=== PATIENT | female | born 1935 | race Caucasian/White ===

== ENCOUNTER 2019-05-23 09:43 | Observation (INO) ==
[2019-05-23] MEDS ORDERED: Ipratropium/Albuterol Neb 3 ML IH ONE (09:56)
[2019-05-23 10:20] LABS: Basophils % 0.4 %; Eosinophils # 0.1 K/mcL (0.0-0.6); Eosinophils % 0.6 %; Hematocrit 39.9 % (35.3-44.9); Hemoglobin 12.9 g/dL (11.5-15.4); Immature Granulocytes % 0.5 % (0-4); Lymphocytes # 3.4 K/mcL (0.6-4.6); Lymphocytes % 29.8 %; Mean Corpuscular HGB Conc 32.3 g/dL (31.6-35.5); Mean Corpuscular Hemoglobin 29.6 pg (28.0-33.3); Mean Corpuscular Volume 91.5 fL (83.0-100.0); Mean Platelet Volume 10.5 fL (9.4-12.4); Monocytes % 8.9 %; Neutrophils # 6.8 K/mcL (1.6-8.9); Platelet Count 208 K/mcL (140-400); Red Blood Count 4.36 M/mcL (3.82-4.97); Segmented Neutrophils % 59.8 %; White Blood Count 11.3 K/mcL (4.3-11.1)
[2019-05-23 10:23] LABS: Basophils # 0.1 K/mcL (0.0-0.2)
[2019-05-23 10:32] LABS: INR 1.2; Prothrombin Time 13.4 Seconds (9.4-12.1)
[2019-05-23 10:35] LABS: Activated Partial Thrombo Time 33.9 Seconds (26.0-36.0)
[2019-05-23 10:37] LABS: BUN/Creatinine Ratio 19 (6-26); Blood Urea Nitrogen 17 mg/dL (8-23); Calcium 9.6 mg/dL (8.6-10.3); Carbon Dioxide 30 mEq/L (23-29); Chloride 95 mEq/L (98-107); Glucose 127 mg/dL (70-105); Osmolality,Calculated 281 (280-300); Potassium 3.5 mEq/L (3.5-5.1); Sodium 134 mEq/L (136-145); eGFR For African Americans > 60 (> 60); eGFR For Non-African Americans > 60 (> 60)
[2019-05-23 10:45] LABS: Troponin I < 0.03 ng/mL (< 0.04)
--- NOTE | 2019-05-23 11:31 | Emergency Department Note ---
Disposition Clinical Impression: Acute exacerbation of chronic obstructive airways disease Dyspnea Qualifiers: Dyspnea type: unspecified Qualified Code(s): R06.00 - Dyspnea, unspecified Disposition: Admitted As Inpatient Condition: Fair Referrals: Tiana Chavarria CNP [Primary Care Provider] - Forms: ED Satisfaction Letter Time of Disposition: 11:34 SOB HPI - General Chief Complaint: ED Shortness of Breath/Dyspnea Stated Complaint: SHORT OF BREATH Time Seen by Provider: 05/23/19 09:54 Source: patient Mode of arrival: private vehicle Limitations: no limitations Nursing Notes Reviewed: Yes Vital Signs Reviewed: Yes - History of Present Illness Pt Subjective Complaint: shortness of breath Onset (ago): day(s) Severity: severe Consistency/Duration: constant Improves with: nothing Worsens with: exertion Known history of: COPD Associated symptoms: Reports: cough, wheezing, sputum production Treatment prior to arrival: bronchodilator Cough present: Yes Cough Description: Involuntary Cough Frequency: Intermittent Sputum production: Yes - Related Data Home oxygen amount: 2 liters Home Medications Medication Instructions Recorded Confirmed Albuterol Sulfate [Ventolin Hfa] 90 mcg IH Q6H PRN 12/24/15 05/23/19 Amlodipine Besylate 5 mg PO DAILY 12/24/15 05/23/19 Budesonide/Formoterol 160/4.5 2 puff IH BIDR 12/24/15 05/23/19 [Symbicort 160/4.5] predniSONE [Prednisone] 5 mg PO DAILY 08/29/16 05/23/19 Omeprazole [PriLOSEC] 20 mg PO DAILY 11/14/16 05/23/19 Alendronate Sodium [Fosamax] 10 mg PO QWEEK 02/27/18 05/23/19 Allopurinol [Zyloprim] 100 mg PO DAILY 02/27/18 05/23/19 Dextran 70/Hypromellose 1 ml OP QID 02/27/18 05/23/19 [Artificial Tears Eye Drops] Montelukast [Singulair] 10 mg PO HS 02/27/18 05/23/19 Albuterol Neb [Proventil Neb] 2.5 mg IH Q6H PRN 07/31/18 05/23/19 Guaifenesin [Mucinex] 600 mg PO Q12H PRN 07/31/18 05/23/19 Tiotropium [Spiriva] 18 mcg IH 0700 05/23/19 05/23/19 Allergies Allergy/AdvReac Type Severity Reaction Status Date / Time aspirin Allergy Hives Verified 05/20/19 00:00 Cyclobenzaprine AdvReac Dizziness Verified 05/20/19 00:00 All systems ED: reviewed and negative except as stated. Constitutional: Denies: fever, chills ENT ED: Denies: ear pain, throat pain, congestion Cardiovascular: Denies: chest pain, palpitations Respiratory: Reports: cough, dyspnea, wheezes Gastrointestinal: Denies: abdominal pain, nausea, vomiting, diarrhea Integumentary: Denies: rash Neurological: Denies: headache Past Medical History - Past Medical History Attestation: Yes The following information was validated with the patient. Source: patient, old records reviewed, nursing notes reviewed Medical history: Reports: COPD, GERD, hypertension, osteoporosis Surgical history: Reports: non-contributory Psychiatric history: Reports: no psych history FUR REPAIRER history: Reports: no FUR REPAIRER history - Social History Smoking Status: Never smoker Smokeless Tobacco Status: No Alcohol use: Reports: none Drug use: Reports: none Physical Exam - General Limitations: no limitations General appearance: alert, other (Tachypneic with audible wheezing) - Head Head exam: other (Ecchymosis to the left side of head and face from recent injury) - Eye Eye exam: Present: normal appearance, PERRL, EOMI. Absent: scleral icterus, conjunctival injection - ENT ENT exam: normal exam, normal oropharynx, mucous membranes moist, normal external ear exam - Neck Neck exam: Present: normal inspection, full ROM, trachea midline. Absent: meningismus - Chest Chest inspection: Present: normal inspection, symmetric chest wall rise. Absent: tenderness - Respiratory Respiratory exam: Present: wheezes, prolonged expiratory phase - Cardiovascular Cardiovascular exam: Present: regular rate, normal rhythm, normal heart sounds - Abdominal Exam Abdominal exam: Present: soft, Non-Tender, normal bowel sounds - Extremities Exam Extremities exam: Present: normal inspection. Absent: tenderness - Neurological Exam Neurological exam: Present: alert, oriented X3 - Psychiatric Psychiatric exam: Present: normal affect, normal mood - Skin Skin exam: Present: warm, dry. Absent: rash Course Course Narrative: Patient arrived with shortness of breath and cough and wheezing over the past couple of days. This is worsened by exertion at home. She was recently seen in this ER after a fall with head injury. All imaging studies there were negativ e. Her complaints today are unrelated to that fall. On examination her lungs are coarse with wheezing but she has breath sounds on both lungs. We will get breathing treatments going. She already got steroids from the squad. Disposition will be based on diagnostic results and reevaluation. - Reevaluation(s) Reevaluation #1: Chest x-ray is clear. Labs look fine. Patient has improved with 3 treatments but still audible wheezing at rest so she is to be admitted for further management. I will talk to the hospitalist and arrange admission. Time: 11:33 - Consultations Consultation #1: Dr. Snyder, hospitalist - I discussed case with the hospice. He gave orders to admit the patient. Time: 11:39 Vital Signs Temperature 98.5 F 05/23/19 09:55 Pulse Rate 96 05/23/19 09:55 Respiratory Rate 22 05/23/19 09:55 Blood Pressure 164/84 05/23/19 09:55 O2 Sat by Pulse Oximetry 95 05/23/19 09:55 Temperature 98.5 F 05/23/19 09:55 Pulse Rate 96 05/23/19 09:55 Respiratory Rate 22 05/23/19 09:55 Blood Pressure 164/84 05/23/19 09:55 O2 Sat by Pulse Oximetry 93 05/23/19 09:55 Oxygen Delivery Oxygen Delivery Nasal Cannula Shortness of Breath/Dyspnea - Medical Records Medical records reviewed: Yes I reviewed the patient's medical records. - Lab Data Lab results reviewed: Yes I reviewed the patient's lab results. Result diagrams: 05/23/19 10:10 05/23/19 10:10 Lab Results 05/23/19 05/23/19 05/23/19 Range/Units 10:10 10:10 10:10 WBC 11.3 H (4.3-11.1) K/mcL RBC 4.36 (3.82-4.97) M/mcL Hgb 12.9 (11.5-15.4) g/dL Hct 39.9 (35.3-44.9) % MCV 91.5 (83.0-100.0) fL MCH 29.6 (28.0-33.3) pg MCHC 32.3 (31.6-35.5) g/dL RDW 15.0 H (11.5-14.5) % Plt Count 208 (140-400) K/mcL MPV 10.5 (9.4-12.4) fL Immature Gran % 0.5 (0-4) % Seg Neutrophils % 59.8 % Lymphocytes % 29.8 % Monocytes % 8.9 % Eosinophils % 0.6 % Basophils % 0.4 % Neutrophils # 6.8 (1.6-8.9) K/mcL Lymphocytes # 3.4 (0.6-4.6) K/mcL Monocytes # 1.0 (0.0-1.3) K/mcL Eosinophils # 0.1 (0.0-0.6) K/mcL Basophils # 0.1 (0.0-0.2) K/mcL PT (9.4-12.1) Seconds INR APTT (26.0-36.0) Seconds Sodium 134 L (136-145) mEq/L Potassium 3.5 (3.5-5.1) mEq/L Chloride 95 L (98-107) mEq/L Carbon Dioxide 30 H (23-29) mEq/L BUN 17 (8-23) mg/dL Creatinine 0.88 (0.60-1.20) mg/dL Est GFR ( Amer) > 60 (> 60) Est GFR (Non-Af Amer) > 60 (> 60) BUN/Creatinine Ratio 19 (6-26) Glucose 127 H (70-105) mg/dL Calculated Osmolality 281 (280-300) Calcium 9.6 (8.6-10.3) mg/dL Troponin I < 0.03 (< 0.04) ng/mL B-Natriuretic Peptide 97 (Less than 100) pg/mL 05/23/19 Range/Units 10:10 WBC (4.3-11.1) K/mcL RBC (3.82-4.97) M/mcL Hgb (11.5-15.4) g/dL Hct (35.3-44.9) % MCV (83.0-100.0) fL MCH (28.0-33.3) pg MCHC (31.6-35.5) g/dL RDW (11.5-14.5) % Plt Count (140-400) K/mcL MPV (9.4-12.4) fL Immature Gran % (0-4) % Seg Neutrophils % % Lymphocytes % % Monocytes % % Eosinophils % % Basophils % % Neutrophils # (1.6-8.9) K/mcL Lymphocytes # (0.6-4.6) K/mcL Monocytes # (0.0-1.3) K/mcL Eosinophils # (0.0-0.6) K/mcL Basophils # (0.0-0.2) K/mcL PT 13.4 H (9.4-12.1) Seconds INR 1.2 APTT 33.9 (26.0-36.0) Seconds Sodium (136-145) mEq/L Potassium (3.5-5.1) mEq/L Chloride (98-107) mEq/L Carbon Dioxide (23-29) mEq/L BUN (8-23) mg/dL Creatinine (0.60-1.20) mg/dL Est GFR ( Amer) (> 60) Est GFR (Non-Af Amer) (> 60) BUN/Creatinine Ratio (6-26) Glucose (70-105) mg/dL Calculated Osmolality (280-300) Calcium (8.6-10.3) mg/dL Troponin I (< 0.04) ng/mL B-Natriuretic Peptide (Less than 100) pg/mL - Radiology Data Radiology results reviewed: Yes I reviewed the patient's radiology results. - EKG Data EKG attestation: Yes I reviewed and interpreted this EKG. EKG results narrative: Twelve-lead EKG performed at 10:56 AM. Ordered, but interpreted by ED physician shows sinus rhythm at a rate of 95. Normal axis. Left bundle branch block. No acute ischemic changes. Intervals within normal limits.
[2019-05-23] MEDS ORDERED: MethylPREDNISolone 40 MG/ML VIAL IVP ONE (12:27)
[2019-05-23] MEDS ORDERED: Naloxone 0.4 MG/ML INJ IVP PRN (12:27)
[2019-05-23] MEDS ORDERED: Azithromycin 500 MG in D5% in Water 250 ML IVPB ONE (12:27)
[2019-05-23] MEDS ORDERED: NON-FORMULARY MEDICATION 1 EACH EACH (Alendronate Sodium [Fosamax] 10 MG) PO SCH (12:27)
[2019-05-23] MEDS: Ipratropium/Albuterol Neb 3 ML IH SCH ×3 (13:05→21:26)
[2019-05-23] MEDS: cefTRIAXone 1,000 MG in Water for inj. (sterile) 10 ML IVPB SCH (14:29)
[2019-05-23] MEDS: 0.9 % Sodium Chloride 1,000 ML IVC SCH (14:31)
[2019-05-23] MEDS: Budesonide/Formoterol 160/4.5 1 PUFF INH IH SCH (23:00)
[2019-05-24] MEDS: Ipratropium/Albuterol Neb 3 ML IH SCH ×6 (00:35→20:59)
[2019-05-24] MEDS: 0.9 % Sodium Chloride 1,000 ML IVC SCH (04:38)
[2019-05-24] MEDS: Budesonide/Formoterol 160/4.5 1 PUFF INH IH SCH ×2 (08:44→21:02)
[2019-05-24] MEDS: Tiotropium 18 MCG inhalation IH SCH (08:45)
[2019-05-24] MEDS: amLODIPine 5 MG TABLET PO SCH (09:39)
[2019-05-24] MEDS: cefTRIAXone 1,000 MG in Water for inj. (sterile) 10 ML IVPB SCH (09:39)
--- NOTE | 2019-05-24 12:43 | Internal Med History&Physical ---
Date of Encounter: 05/24/19 Time of Encounter: 12:20 Assessment and Plan (1) Acute bronchitis Current visit: Yes Status: Acute Bibasilar pneumonia not completely excluded. She was started on IV Rocephin and Zithromax in emergency room. Pro-calcitonin level will be ordered. Qualifiers: Bronchitis organism: unspecified organism Qualified Code(s): J20.9 - Acute bronchitis, unspecified (2) Gout Current visit: No Status: Chronic Check uric acid level in a.m. Qualifiers: Gout site: unspecified site Gout etiology: unspecified cause Chronicity: chronic Presence of tophus: without tophus Qualified Code(s): M1A.9XX0 - Chronic gout, unspecified, without tophus (tophi) (3) Nasal bone fracture Current visit: No Status: Acute Nonsurgical treatment. Qualifiers: Encounter type: subsequent encounter Fracture type: closed Fracture healing: with routine healing Qualified Code(s): S02.2XXD - Fracture of nasal bones, subsequent encounter for fracture with routine healing Internal Medicine - H&P: HPI Chief complaint: Dyspnea and cough Admitted From: Emergency Dept Plans for Post Hospital Care: Home History of present illness: Ms. Pagan is a 84 year old female who came to emergency room stating she had fever with worsening dyspnea the morning of admission. Symptoms originally started approximately 3-4 days earlier. She had seen her PCP and received prescriptions for antibiotic and other Rx. She reports cough productive of green/yellow and occasional blood-tinged sputum. She was evaluated in emergency room and was felt to have exacerbation of COPD with possible bibasilar pneumon ia. She was admitted to [facility] floor for ongoing care needs. Her respiratory history is significant for having smoked from age [age]. She had pulmonary function tests 08/08/2015 which showed moderate obstructive ventilatory impairment with significant bronchodilator response. There was increased RV suggesting air trapping. The actual data was not included in the report. She was hospitalized to [facility] October 2016 with a diagnosis of pneumonia. She has oxygen at home which she wears regularly but not continuously. Past Med Surg Social Fam HX - Past Medical History Medical history: COPD, GERD, hypertension, osteoporosis Additional medical history: gout, Psychiatric history: no psych history - Past Surgical History Surgical History: non-contributory Additional surgical history: cataract surgery right and left eye - Social History Smoking Status: Never smoker Smokeless Tobacco Status: No Alcohol use: none Drug use: none Internal Medicine - H&P: Meds Albuterol Sulfate [Ventolin Hfa] 90 mcg IH Q6H PRN 12/24/15 [History] Amlodipine Besylate 5 mg PO DAILY 12/24/15 [History] Budesonide/Formoterol 160/4.5 [Symbicort 160/4.5] 2 puff IH BIDR 12/24/15 [History] predniSONE [Prednisone] 5 mg PO DAILY 08/29/16 [History] Omeprazole [PriLOSEC] 20 mg PO DAILY 11/14/16 [History] Alendronate Sodium [Fosamax] 10 mg PO QWEEK 02/27/18 [History] Allopurinol [Zyloprim] 100 mg PO DAILY 02/27/18 [History] Dextran 70/Hypromellose [Artificial Tears Eye Drops] 1 ml OP QID 02/27/18 [History] Montelukast [Singulair] 10 mg PO HS 02/27/18 [History] Albuterol Neb [Proventil Neb] 2.5 mg IH Q6H PRN 07/31/18 [History] Guaifenesin [Mucinex] 600 mg PO Q12H PRN 07/31/18 [History] Tiotropium [Spiriva] 18 mcg IH 0700 05/23/19 [History] Allergy/AdvReac Type Severity Reaction Status Date / Time aspirin Allergy Hives Verified 05/20/19 00:00 Cyclobenzaprine AdvReac Dizziness Verified 05/20/19 00:00 All Systems PM: A 10-system review of systems was performed and is negative for pertinent findings except as documented above in the HPI. Review of systems: Review of systems from her October 2016 [facility] hospitalization were reviewed and revised as below. Gen.: She states her weight has been stable past few months Cardiovascular: She has history of hypertension but denies HI heart failure angina DVT or pulmonary embolus Respiratory: As per history of present illness GI: She denies disorders of her liver gallbladder or exocrine pancreas : She denies hematuria dysuria or kidney stones. She denies chronic kidney disease. Neurologic: She denies large distribution strokes or seizures. Endocrine: She denies diabetes thyroid disease or hyperlipidemia Hematology/oncology: She denies blood disorders cancers or anemia Psychiatric: She denies anxiety depression or other mental health issues Musk skeletal: She has DJD and gout. She had a fall the evening of May 19 and came to emergency room. Nasal fracture was diagnosed and she was referred to ENT and was seen May 21. Conservative nonsurgical intervention was recommended. She denies other bone joint or muscle disorders. - Constitutional Vitals: Temp Pulse Resp BP Pulse Ox 98.3 F 79 16 162/73 95 05/24/19 07:24 05/24/19 07:24 05/24/19 08:44 05/24/19 07:24 05/24/19 08:44 Exam: Gen.: She is a well-developed overweight female sitting in a chair at bedside who appears in no acute distress HEENT: She has ecchymosis covering a large portion of her left face. Eyes: EOMI. There is no scleral icterus. Mouth: Mucosa is moist. Neck: Supple and nontender. There is no thyromegaly or adenopathy noted. Heart: Regular without murmurs gallops or ectopics Lungs: No wheezes or crackles are heard. Abdomen: Soft and nontender. No masses or guarding are noted. Exam is limited because she is in the seated position. Extremities: No cyanosis edema or clubbing noted. Dorsalis pedis and posterior tibial pulses are trace to 1+ palpable bilaterally. Neurologic: Mental status: She is talkative and a good historian. Cranial ne rves: Smile is symmetric. Forehead wrinkles bilaterally. Tongue protrudes midline. EOMI. Motor: There is no pronator drift. Cerebellar: Finger to nose is intact bilaterally. Skin: Warm and dry Internal Med - H&P Results - Labs CBC & Chem 7: 05/23/19 10:10 05/23/19 10:10 - Impressions ITS Impressions Chest X-Ray 05/23/19 09:55 IMPRESSION: Mild bibasilar atelectasis versus pneumonia. D/ / Parveen Villanueva MD / Parveen Villanueva MD Interpreting Provider: Parveen Villanueva MD
--- NOTE | 2019-05-24 16:05 | Electrocardiograph Report ---
[address] [address] Test Date: 2019-05-23 Pat Name: Lesley Pagan Department: [id number] Room: [facility] Gender: F Scientist Immunology: [id number] : 1935 Requested By: Zaire Bedoya Order Number: [id number] Reading MD: Eligio Pitt Measurements Intervals [place] Rate: 95 P: 56 CT: 160 QRS: 17 QRSD: 161 T: 164 QT: 381 QTc: 434 Interpretive Statements SINUS RHYTHM WITH OCCASIONAL SUPRAVENTRICULAR PREMATURE COMPLEXES LEFT BUNDLE BRANCH BLOCK Electronically Signed On 05-24-2019 16:03:36 EDT by Eligio Pitt
[2019-05-25] MEDS: Ipratropium/Albuterol Neb 3 ML IH SCH ×4 (00:37→12:43)
[2019-05-25 07:41] LABS: Basophils % 0.1 %; Eosinophils % 0.2 %; Hematocrit 36.6 % (35.3-44.9); Hemoglobin 11.9 g/dL (11.5-15.4); Immature Granulocytes % 0.4 % (0-4); Lymphocytes # 1.3 K/mcL (0.6-4.6); Lymphocytes % 10.5 %; Mean Corpuscular HGB Conc 32.5 g/dL (31.6-35.5); Mean Corpuscular Hemoglobin 30.1 pg (28.0-33.3); Mean Corpuscular Volume 92.7 fL (83.0-100.0); Mean Platelet Volume 10.8 fL (9.4-12.4); Monocytes # 0.8 K/mcL (0.0-1.3); Monocytes % 6.3 %; Neutrophils # 10.1 K/mcL (1.6-8.9); Platelet Count 223 K/mcL (140-400); Red Blood Count 3.95 M/mcL (3.82-4.97); Red Cell Distribution Width 15.3 % (11.5-14.5); Segmented Neutrophils % 82.5 %; White Blood Count 12.2 K/mcL (4.3-11.1)
[2019-05-25 07:52] LABS: BUN/Creatinine Ratio 29 (6-26); Blood Urea Nitrogen 26 mg/dL (8-23); Calcium 9.1 mg/dL (8.6-10.3); Carbon Dioxide 27 mEq/L (23-29); Chloride 104 mEq/L (98-107); Glucose 93 mg/dL (70-105); Osmolality,Calculated 294 (280-300); Potassium 3.5 mEq/L (3.5-5.1); Sodium 140 mEq/L (136-145); eGFR For African Americans > 60 (> 60); eGFR For Non-African Americans 59 (> 60)
[2019-05-25] MEDS: Budesonide/Formoterol 160/4.5 1 PUFF INH IH SCH (07:54)
[2019-05-25] MEDS: Tiotropium 18 MCG inhalation IH SCH (07:54)
[2019-05-25] MEDS: cefTRIAXone 1,000 MG in Water for inj. (sterile) 10 ML IVPB SCH (09:29)
[2019-05-25] MEDS: amLODIPine 5 MG TABLET PO SCH (09:29)
[2019-05-25 10:44] VITALS: BP 128/83
--- NOTE | 2019-05-25 11:27 | Discharge Summary ---
Orders not resulted at time of discharge: Pending orders 05/23/19 10:10 Culture,Blood [] Stat Date of Encounter: 05/25/19 Time of Encounter: 11:16 - Discharge Diagnosis (1) Acute bronchitis Priority: Primary Status: Acute Qualifiers: Bronchitis organism: unspecified organism Qualified Code(s): J20.9 - Acute bronchitis, unspecified (2) Gout Priority: Secondary Status: Chronic Qualifiers: Gout site: unspecified site Gout etiology: unspecified cause Chronicity: chronic Presence of tophus: without tophus Qualified Code(s): M1A.9XX0 - Chronic gout, unspecified, without tophus (tophi) (3) Nasal bone fracture Priority: Secondary Status: Acute Qualifiers: Encounter type: subsequent encounter Fracture type: closed Fracture healing: with routine healing Qualified Code(s): S02.2XXD - Fracture of nasal bones, subsequent encounter for fracture with routine healing Hospital course: Ms. Pagan is a 84 year old female who came to emergency room stating she had fever with worsening dyspnea the morning of admission. Symptoms originally started approximately 3-4 days earlier. She had seen her PCP and received prescriptions for antibiotic and other Rx. She reports cough productive of green/yellow and occasional blood-tinged sputum. She was evaluated in emergency room and was felt to have exacerbation of COPD with possible bibasilar pneum onia. She was admitted to [facility] floor for ongoing care needs. Initial orders were written by the emergency room physician. I saw her on May 24 and performed a history and physical. She was started on IV Rocephin and Zithromax empirically in emergency room for possible pneumonia. Procalcitonin level returned WNL at 0.02. She remained afebrile and felt improved when I saw her May 25. She wished to be discharged which I felt was reasonable. She will not continue with antibiotics at home. She will continue use of home oxygen as prior to admission. Follow-up lab work on May 25 showed WBC slightly elevated at 12.2 with 82.5% segs. Uric acid level returned normal at 5.4. BN peptide slightly elevated at 199. Her PCP can follow-up on these abnormalities. She will follow with her PCP Tiana Chavarria CNP within 1 week. - Time Spent with Patient Total time spent providing and/or coordinating discharge services: - Discharge Medications Prescriptions: Continued Amlodipine Besylate 5 mg PO DAILY Albuterol Sulfate [Ventolin Hfa] 90 mcg IH Q6H PRN PRN Reason: asthma Budesonide/Formoterol 160/4.5 [Symbicort 160/4.5] 2 puff IH BIDR predniSONE [Prednisone] 5 mg PO DAILY Omeprazole [PriLOSEC] 20 mg PO DAILY Alendronate Sodium [Fosamax] 10 mg PO QWEEK Allopurinol [Zyloprim] 100 mg PO DAILY Dextran 70/Hypromellose [Artificial Tears Eye Drops] 1 ml OP QID Montelukast [Singulair] 10 mg PO HS Albuterol Neb [Proventil Neb] 2.5 mg IH Q6H PRN PRN Reason: Wheezing Guaifenesin [Mucinex] 600 mg PO Q12H PRN PRN Reason: CONGESTION Tiotropium [Spiriva] 18 mcg IH 0700 Home Medications: Albuterol Sulfate [Ventolin Hfa] 90 mcg IH Q6H PRN 12/24/15 [History] Amlodipine Besylate 5 mg PO DAILY 12/24/15 [History] Budesonide/Formoterol 160/4.5 [Symbicort 160/4.5] 2 puff IH BIDR 12/24/15 [History] predniSONE [Prednisone] 5 mg PO DAILY 08/29/16 [History] Omeprazole [PriLOSEC] 20 mg PO DAILY 11/14/16 [History] Alendronate Sodium [Fosamax] 10 mg PO QWEEK 02/27/18 [History] Allopurinol [Zyloprim] 100 mg PO DAILY 02/27/18 [History] Dextran 70/Hypromellose [Artificial Tears Eye Drops] 1 ml OP QID 02/27/18 [History] Montelukast [Singulair] 10 mg PO HS 02/27/18 [History] Albuterol Neb [Proventil Neb] 2.5 mg IH Q6H PRN 07/31/18 [History] Guaifenesin [Mucinex] 600 mg PO Q12H PRN 07/31/18 [History] Tiotropium [Spiriva] 18 mcg IH 0700 05/23/19 [History] Allergies/Adverse Reactions: Allergy/AdvReac Type Severity Reaction Status Date / Time aspirin Allergy Hives Verified 05/20/19 00:00 Cyclobenzaprine AdvReac Dizziness Verified 05/20/19 00:00 Date of admission: 05/23/19 12:16 Primary care physician: Tiana Chavarria - Constitutional Vitals: Temp Pulse Resp BP Pulse Ox 98.3 F 90 18 128/83 96 05/25/19 10:41 05/25/19 10:41 05/25/19 10:41 05/25/19 10:41 05/25/19 10:41 - Patient Status Disposition: Home, Self-Care Condition: Fair - Discharge Instructions Follow Up With: Tiana Chavarria, [employer] [Primary Care Provider] - 1 week - Diet and Activity Activity: resume usual activities as tolerated Diet: advance to your usual diet
== END 2019-05-25 13:09 | disposition home or self-care (01) ==
LOC: INPPIK 09:43 → EMEROOPIK 09:43 → INPPIK 12:45
PROVIDERS: ADMIT Internal Medicine; ATTEND Internal Medicine

== ENCOUNTER 2022-05-05 09:47 | Inpatient (IN) ==
[2022-05-05 10:28] LABS: Bilirubin,Urine Small (Negative); Blood,Urine Small (Negative); Clarity,Urine Clear (Clear); Color,Urine Yellow (Yellow); Glucose,Urine (UA) Normal (Normal); Ketones,Urine 40 mg/dL (Negative); Leukocyte Esterase,Urine Negative (Negative); Nitrite,Urine Negative (Negative); Protein,Urine 30 mg/dL (Neg-Trace); Specific Gravity,Urine 1.025 (1.010-1.025); Urobilinogen,Urine Normal (Normal)
[2022-05-05 10:34] LABS: RBC,Urine 0-3 per hpf (0-3)
[2022-05-05 10:38] LABS: Basophils % 0.1 %; Eosinophils # 0.1 K/mcL (0.0-0.6); Eosinophils % 0.6 %; Hematocrit 37.2 % (35.3-44.9); Hemoglobin 10.6 g/dL (11.5-15.4); Immature Granulocytes % 0.6 % (0-4); Lymphocytes # 1.3 K/mcL (0.6-4.6); Lymphocytes % 12.7 %; Mean Corpuscular HGB Conc 28.5 g/dL (31.6-35.5); Mean Corpuscular Hemoglobin 24.2 pg (28.0-33.3); Mean Corpuscular Volume 84.9 fL (83.0-100.0); Mean Platelet Volume 10.2 fL (9.4-12.4); Monocytes # 0.7 K/mcL (0.0-1.3); Monocytes % 7.1 %; Platelet Count 224 K/mcL (140-400); Red Blood Count 4.38 M/mcL (3.82-4.97); Red Cell Distribution Width 17.1 % (11.5-14.5); Segmented Neutrophils % 78.9 %; White Blood Count 10.1 K/mcL (4.3-11.1)
[2022-05-05 10:41] LABS: ABG Base Excess 6 mEq/L (-2 to 3); ABG HCO3 36 mEq/L (21-27); ABG Oxygen Saturation 99 % (95-98); ABG PCO2 80 mmHg (35-45); ABG PH 7.27 pH Units (7.32-7.45); ABG PO2 151 mmHg (85-104); ABG TCO2 39 mEq/L (20-26)
[2022-05-05 10:43] LABS: Amphetamine Screen,Urine Negative ng/mL (Cutoff=1000); Barbiturate Screen,Urine Negative ng/mL (Cutoff=200); Benzodiazepines Screen,Urine Negative ng/mL (Cutoff=200); Cannabinoid Screen,Urine Negative ng/mL (Cutoff = 50); Cocaine Screen,Urine Negative ng/mL (Cutoff= 300); Opiate Screen,Urine Negative ng/mL (Cutoff=300); Phencyclidine Screen,Urine Negative ng/mL (Cutoff=25)
[2022-05-05] MEDS ORDERED: Ipratropium/Albuterol Neb 3 ML IH ONE (10:45)
[2022-05-05] MEDS ORDERED: methylPREDNISolone 125 MG/2 ML VIAL IVP ONE (10:45)
[2022-05-05 10:49] LABS: INR 1.1; Prothrombin Time 12.4 Seconds (9.4-12.1)
[2022-05-05 10:56] LABS: Alanine Aminotransferase 25 Units/L (7-52); Albumin 3.7 g/dL (3.5-5.7); Albumin/Globulin Ratio 1.5 (1.1-2.2); Alkaline Phosphatase 51 Units/L (34-104); Aspartate Amino Transferase 24 Units/L (13-39); BUN/Creatinine Ratio 22 (6-26); Bilirubin,Direct 0.2 mg/dL (0.0-0.2); Bilirubin,Indirect 0.6 mg/dL (0.0-1.0); Bilirubin,Total 0.8 mg/dL (0.3-1.0); Blood Urea Nitrogen 15 mg/dL (8-23); Calcium 8.7 mg/dL (8.6-10.3); Carbon Dioxide 38 mEq/L (23-29); Chloride 93 mEq/L (98-107); Ethanol < 10 mg/dL (Less than 10); Globulin 2.4 g/dL (2.4-3.5); Glucose 87 mg/dL (70-105); Lipase 16 Units/L (11-82); Osmolality,Calculated 282 (280-300); Potassium 3.8 mEq/L (3.5-5.1); Sodium 136 mEq/L (136-145); Total Protein 6.1 g/dL (6.4-8.9); eGFR For African Americans > 60 (> 60); eGFR For Non-African Americans > 60 (> 60)
[2022-05-05 12:14] LABS: ABG Base Excess 6 mEq/L (-2 to 3); ABG HCO3 34 mEq/L (21-27); ABG Oxygen Saturation 99 % (95-98); ABG PCO2 63 mmHg (35-45); ABG PH 7.34 pH Units (7.32-7.45); ABG PO2 137 mmHg (85-104); ABG TCO2 36 mEq/L (20-26)
[2022-05-05] MEDS ORDERED: Naloxone 0.4 MG/ML INJ IVP PRN (13:05)
[2022-05-05] MEDS ORDERED: Acetaminophen 325 MG TABLET PO PRN (13:05)
[2022-05-05] MEDS ORDERED: Ondansetron 4 MG/2 ML VIAL IVP PRN (13:05)
[2022-05-05] MEDS ORDERED: Acetaminophen IV 1,000 MG/100 ML BAG IVPB ONE (13:30)
[2022-05-05] MEDS: Furosemide 20 MG/2 ML VIAL IVP SCH ×2 (14:55→19:46)
[2022-05-05] MEDS: methylPREDNISolone 125 MG/2 ML VIAL IVP SCH ×2 (16:01→23:55)
[2022-05-05] MEDS: Budesonide/Formoterol 160/4.5 1 PUFF INH IH SCH (20:20)
[2022-05-06 02:29] LABS: BUN/Creatinine Ratio 21 (6-26); Blood Urea Nitrogen 17 mg/dL (8-23); Calcium 8.4 mg/dL (8.6-10.3); Carbon Dioxide 35 mEq/L (23-29); Chloride 91 mEq/L (98-107); Glucose 145 mg/dL (70-105); Magnesium 1.7 mg/dL (1.6-2.6); Osmolality,Calculated 288 (280-300); Potassium 3.8 mEq/L (3.5-5.1); Sodium 137 mEq/L (136-145); eGFR For African Americans > 60 (> 60); eGFR For Non-African Americans > 60 (> 60)
[2022-05-06 04:10] LABS: Hematocrit 36.3 % (35.3-44.9); Hemoglobin 10.7 g/dL (11.5-15.4); Immature Granulocytes % 0.4 % (0-4); Lymphocytes # 0.5 K/mcL (0.6-4.6); Lymphocytes % 6.6 %; Mean Corpuscular HGB Conc 29.5 g/dL (31.6-35.5); Mean Corpuscular Hemoglobin 24.4 pg (28.0-33.3); Mean Corpuscular Volume 82.9 fL (83.0-100.0); Mean Platelet Volume 10.7 fL (9.4-12.4); Monocytes # 0.1 K/mcL (0.0-1.3); Monocytes % 1.2 %; Neutrophils # 6.9 K/mcL (1.6-8.9); Platelet Count 230 K/mcL (140-400); Red Blood Count 4.38 M/mcL (3.82-4.97); Red Cell Distribution Width 17.2 % (11.5-14.5); Segmented Neutrophils % 91.8 %; White Blood Count 7.5 K/mcL (4.3-11.1)
[2022-05-06] MEDS: *HR* Enoxaparin 40 MG/0.4 ML SYRINGE SQ SCH (05:33)
[2022-05-06] MEDS: methylPREDNISolone 125 MG/2 ML VIAL IVP SCH ×2 (07:50→15:50)
[2022-05-06] MEDS: Furosemide 20 MG/2 ML VIAL IVP SCH ×2 (07:51→17:41)
[2022-05-06] MEDS ORDERED: Tiotropium 10 INH DOSE IH SCH (09:00)
[2022-05-06] MEDS: Budesonide/Formoterol 160/4.5 1 PUFF INH IH SCH ×2 (09:07→21:35)
[2022-05-06] MEDS ORDERED: Artificial Tears SOLN 15 ML BOTTLE BOTH EYES PRN (09:15)
[2022-05-06] MEDS: amLODIPine 5 MG TABLET PO SCH (11:59)
[2022-05-06] MEDS: Azithromycin 250 MG TABLET PO SCH (11:59)
[2022-05-07] MEDS: methylPREDNISolone 125 MG/2 ML VIAL IVP SCH ×2 (01:06→10:25)
[2022-05-07] MEDS: *HR* Enoxaparin 40 MG/0.4 ML SYRINGE SQ SCH (06:08)
[2022-05-07 07:10] LABS: Basophils % 0.1 %; Hematocrit 34.1 % (35.3-44.9); Hemoglobin 10.2 g/dL (11.5-15.4); Immature Granulocytes % 0.5 % (0-4); Lymphocytes # 0.4 K/mcL (0.6-4.6); Lymphocytes % 2.8 %; Mean Corpuscular HGB Conc 29.9 g/dL (31.6-35.5); Mean Corpuscular Hemoglobin 24.2 pg (28.0-33.3); Mean Platelet Volume 10.8 fL (9.4-12.4); Monocytes # 0.3 K/mcL (0.0-1.3); Monocytes % 1.7 %; Platelet Count 232 K/mcL (140-400); Red Blood Count 4.21 M/mcL (3.82-4.97); Red Cell Distribution Width 17.5 % (11.5-14.5); Segmented Neutrophils % 94.9 %; White Blood Count 14.7 K/mcL (4.3-11.1)
[2022-05-07 07:43] LABS: BUN/Creatinine Ratio 32 (6-26); Blood Urea Nitrogen 29 mg/dL (8-23); Calcium 8.4 mg/dL (8.6-10.3); Carbon Dioxide 38 mEq/L (23-29); Chloride 93 mEq/L (98-107); Glucose 155 mg/dL (70-105); Osmolality,Calculated 297 (280-300); Potassium 3.3 mEq/L (3.5-5.1); Sodium 139 mEq/L (136-145); eGFR For African Americans > 60 (> 60); eGFR For Non-African Americans 58 (> 60)
[2022-05-07] MEDS: Budesonide/Formoterol 160/4.5 1 PUFF INH IH SCH ×2 (09:33→22:37)
[2022-05-07] MEDS: Azithromycin 250 MG TABLET PO SCH (10:25)
[2022-05-07] MEDS: Furosemide 20 MG/2 ML VIAL IVP SCH (10:25)
[2022-05-07] MEDS: amLODIPine 5 MG TABLET PO SCH (10:25)
[2022-05-07] MEDS: MethylPREDNISolone 40 MG/ML VIAL IVP SCH (17:06)
[2022-05-07] MEDS: Furosemide 20 MG TABLET PO SCH (17:18)
[2022-05-07] MEDS: Sennosides/Docusate Sodium TABLET PO SCH ×2 (17:19→21:15)
[2022-05-07] MEDS ORDERED: GuaiFENesin/Codeine Oral Soln 5 ML UDC PO PRN (20:36)
[2022-05-07] MEDS: Ipratropium/Albuterol Neb 3 ML IH PRN (20:36)
[2022-05-08] MEDS: MethylPREDNISolone 40 MG/ML VIAL IVP SCH (00:17)
[2022-05-08] MEDS: *HR* Enoxaparin 30 MG/0.3 ML SYRINGE SQ SCH (05:21)
[2022-05-08 08:00] LABS: Basophils % 0.1 %; Hematocrit 33.2 % (35.3-44.9); Immature Granulocytes % 0.5 % (0-4); Lymphocytes # 0.3 K/mcL (0.6-4.6); Lymphocytes % 2.2 %; Mean Corpuscular HGB Conc 30.1 g/dL (31.6-35.5); Mean Corpuscular Hemoglobin 24.5 pg (28.0-33.3); Mean Corpuscular Volume 81.4 fL (83.0-100.0); Mean Platelet Volume 11.1 fL (9.4-12.4); Monocytes # 0.3 K/mcL (0.0-1.3); Monocytes % 2.4 %; Neutrophils # 12.5 K/mcL (1.6-8.9); Platelet Count 244 K/mcL (140-400); Red Blood Count 4.08 M/mcL (3.82-4.97); Red Cell Distribution Width 17.7 % (11.5-14.5); Segmented Neutrophils % 94.8 %; White Blood Count 13.2 K/mcL (4.3-11.1)
[2022-05-08] MEDS: Budesonide/Formoterol 160/4.5 1 PUFF INH IH SCH ×2 (08:03→21:41)
[2022-05-08 08:13] LABS: Calcium 8.4 mg/dL (8.6-10.3); Potassium 3.7 mEq/L (3.5-5.1)
[2022-05-08] MEDS ORDERED: MethylPREDNISolone 40 MG/ML VIAL IVP SCH (09:30)
[2022-05-08] MEDS: Sennosides/Docusate Sodium TABLET PO SCH ×2 (09:32→20:53)
[2022-05-08] MEDS: Azithromycin 250 MG TABLET PO SCH (09:32)
[2022-05-08] MEDS: amLODIPine 5 MG TABLET PO SCH (09:33)
[2022-05-08] MEDS: Furosemide 20 MG TABLET PO SCH ×2 (09:33→17:27)
[2022-05-09] MEDS: Ipratropium/Albuterol Neb 3 ML IH PRN (00:37)
[2022-05-09] MEDS ORDERED: *HR* LORazepam 2 MG/ML VIAL IVP ONE (01:14)
[2022-05-09 01:25] LABS: ABG Base Excess 8 mEq/L (-2 to 3); ABG HCO3 33 mEq/L (21-27); ABG Oxygen Saturation 76 % (95-98); ABG PCO2 48 mmHg (35-45); ABG PH 7.44 pH Units (7.32-7.45); ABG TCO2 34 mEq/L (20-26)
[2022-05-09 01:35] LABS: ABG PO2 40 mmHg (85-104)
[2022-05-09 07:14] LABS: Basophils % 0.1 %; Hematocrit 32.2 % (35.3-44.9); Hemoglobin 9.6 g/dL (11.5-15.4); Immature Granulocytes % 0.8 % (0-4); Lymphocytes # 0.8 K/mcL (0.6-4.6); Lymphocytes % 7.4 %; Mean Corpuscular HGB Conc 29.8 g/dL (31.6-35.5); Mean Corpuscular Hemoglobin 24.7 pg (28.0-33.3); Mean Platelet Volume 11.3 fL (9.4-12.4); Monocytes # 0.8 K/mcL (0.0-1.3); Monocytes % 7.7 %; Neutrophils # 8.9 K/mcL (1.6-8.9); Platelet Count 214 K/mcL (140-400); Red Blood Count 3.88 M/mcL (3.82-4.97); Red Cell Distribution Width 18.1 % (11.5-14.5); White Blood Count 10.6 K/mcL (4.3-11.1)
[2022-05-09] MEDS: Budesonide/Formoterol 160/4.5 1 PUFF INH IH SCH (08:22)
[2022-05-09] MEDS: Sennosides/Docusate Sodium TABLET PO SCH (08:31)
[2022-05-09] MEDS: Azithromycin 250 MG TABLET PO SCH (08:31)
[2022-05-09] MEDS: Furosemide 20 MG TABLET PO SCH (08:31)
[2022-05-09] MEDS: amLODIPine 5 MG TABLET PO SCH (08:31)
[2022-05-09] MEDS: *HR* Enoxaparin 30 MG/0.3 ML SYRINGE SQ SCH (08:31)
[2022-05-09 10:06] LABS: BUN/Creatinine Ratio 33 (6-26); Blood Urea Nitrogen 31 mg/dL (8-23); Calcium 8.2 mg/dL (8.6-10.3); Carbon Dioxide 41 mEq/L (23-29); Chloride 96 mEq/L (98-107); Glucose 106 mg/dL (70-105); Osmolality,Calculated 303 (280-300); Potassium 3.3 mEq/L (3.5-5.1); Sodium 143 mEq/L (136-145); eGFR For African Americans > 60 (> 60); eGFR For Non-African Americans 56 (> 60)
[2022-05-09] MEDS ORDERED: acetaZOLAMIDE 250 MG TABLET PO ONE (10:20)
[2022-05-09 10:21] VITALS: BP 136/75; PULSE 66; RESP 17; TEMP 97.7; O2SAT 97
== END 2022-05-09 12:27 | disposition home health service (06) | DRG 140 ==
LOC: INPPIK 09:47 → EMEROOPIK 09:47 → INPPIK 12:55
PROVIDERS: ADMIT Family Medicine; ATTEND Family Medicine